=== PATIENT | female | born 1980 | race Caucasian/White ===

== ENCOUNTER 2020-11-14 14:03 | Emergency (ER) | payer BC, SELFPAY ==
[2020-11-14 14:34] VITALS: BP 111/70; PULSE 88; RESP 18; TEMP 36.7; O2SAT 97; BMI 22.3
--- NOTE | 2020-11-14 15:19 | ED_ITS ---
HPI - Dizziness General: Chief Complaint: General Medical Stated Complaint: DIZZY, SWEATING BUT FEELS DEHYDRATED Time Seen by Provider: 11/14/20 15:05 Source: patient Mode of arrival: ambulatory Limitations: no limitations History of Present Illness: HPI Narrative: Patient is a nice 39-year-old female who presents to ED today with what she presumes is heat exhaustion. Patient tells me she is currently in town and working at the [employer]. 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 Patient tells me she began feeling lightheaded and dizzy and tired. She reportedly tries to drink plenty of water. She is urinating normally. She tells me this morning she felt a little better but feels she cannot go to work this evening and work her shift-is requesting a work note. She tells me she has a history of chronic intermittent vertigo. She has not had any syncopal episodes. She denies chest pain or palpitations. She does not feel short of breath. No visual changes. MD elicited complaint: dizziness and lightheadedness Pertinent past history: other (chronic intermittent vertigo) Onset (ago): day(s) (yesterday) Timing: gradual onset Severity: mild Context: exertion and other (heat) History of similar symptoms: Yes Relieving factors: nothing Associated symptoms: Reports no associated symptoms; Denies chest pain, chills, headache(s), malaise, nausea, palpitations, syncope or vomiting Associated neuro symptoms: Reports no associated symptoms; Deny confusion or numbness in extremities Review of Systems Const: Denies: fever(s), chills, body aches, change in appetite, change in weight, fatigue, malaise or night sweats Eyes: Denies: change in vision, blurry vision, photophobia, floaters or seeing flashes Card: Reports: lightheadedness; Denies: chest pain, palpitations, irregular heart rhythm, edema, swelling of feet/ankles, syncope, pre-syncope, dyspnea on exertion, orthopnea, leg pain with exertion or acrocyanosis Resp: Denies: dyspnea, productive cough or pain on inspiration GI: Denies: abdominal pain, nausea, vomiting, heartburn or diarrhea : Denies: flank pain or dysuria Musc: Denies: neck pain, back pain or joint pain Skin/Breast: Denies: rash Neuro: Reports: dizziness and vertigo (chronic); Denies: headache(s), numbness in extremities, weakness in extremities, sensory changes, lack of coordination, difficulty walking, frequent falls, confusion, behavioral changes, Slurred speech present, difficulty communicating thoughts or seizure-like activity Physical Exam Const: COMMON NORMALS: no acute distress, average body habitus, patient oriented x3, no limitations, healthy appearing, alert and well nourished GENERAL APPEARANCE: cooperative ORIENTATION/CONSCIOUSNESS: Yes awake, Yes oriented to person, Yes oriented to place and Yes oriented to time HENMT: COMMON NORMALS: normocephalic, atraumatic, external ears normal, EAC's normal and TM's normal bilaterally HEAD & SCALP: normocephalic and atraumatic FACE & SINUS: normal facial exam and sinuses nontender EXTERNAL EAR: Yes external ears normal EXTERNAL AUDITORY CANAL: EAC's normal TYMPANIC MEMBRANE: TM's normal bilaterally Eye: COMMON NORMALS: Equal, round and reactive pupils present and EOMs intact bilaterally GENERAL EYE: appearance normal, both eyes and all related structures PUPIL: Yes Equal, round and reactive pupils present Neck/C-Spine: COMMON NORMALS: full ROM and no lymphadenopathy GENERAL: Yes normal visual inspection Resp: COMMON NORMALS: normal respiratory effort and clear to auscultation bilaterally AUSCULTATION: clear to auscultation bilaterally Cardio: COMMON NORMALS: regular rate and regular rhythm RATE: regular rate RHYTHM: regular rhythm Extremity: COMMON NORMALS: capillary refill normal, no clubbing, cyanosis or edema, no calf tenderness and no pedal edema Neuro: ÁNGEL COMA SCALE: document GCS findings Ángel coma scale eye opening: Spontaneous Ellabell coma scale verbal response: Orientated [place]ell coma scale motor response: Obey commands Ángel coma scale total score: 15 COMMON NORMALS: patient oriented x3, CN's II-XII intact bilaterally, moves all extremities, no focal motor deficits, no sensory deficits noted and gait normal SENSORIUM/ORIENTATION: Yes alert, Yes oriented to person, Yes oriented to place and Yes oriented to time Skin: COMMON NORMALS: no rashes or lesions noted GENERAL SKIN EXAM: no rashes or lesions noted Course Vital Signs: Vital signs: Vital Signs Temperature 98.1 F 11/14/20 14:34 Pulse Rate 70 11/14/20 17:07 Respiratory Rate 18 11/14/20 14:34 Blood Pressure 115/80 11/14/20 17:07 Pulse Oximetry 100 11/14/20 17:07 MDM - Dizziness MDM Narrative: Medical decision making narrative: Patient tells me she is feeling better with rest and fluids here. Her vital signs are stable. CBC revealing microcytic anemia with hemoglobin of 8.5. I discussed this with patient and she does not seem concerned stating she has had issues with anemia her whole life. She tells me her hemoglobin often runs around 9. She states she has been told to take iron tablets previously but is currently not. She denies any hematemesis, hematochezia, black or tarry stools. CMP is significant for minor elevations to her LFTs. She is not complaining of abdominal pain. She does have a previous history of IV drug use. Discussed with her the need to follow-up with primary care and possibly obtain hepatitis panel. She verbalizes understanding. At this time patient is stable for discharge with return to ED precautions. Work note for this evening provided. Lab Data: Labs: Lab Results 11/14/20 11/14/20 11/14/20 Range/Units 15:38 15:38 15:38 WBC 5.8 (4.0-10.0) 10^3/ uL RBC 4.32 (4.1-5.3) 10^6/u L Hgb 8.5 L (11.5-15.3) g/dL Hct 30.5 L (37.0-47.0) % MCV 70.6 L (81-99) fL MCH 19.7 L (28.0-34.0) pg MCHC 27.9 L (30.0-36.0) g/dL RDW 20.1 H (12.1-15.1) % Plt Count 257 (130-400) 10^3/c mm MPV 9.9 (7.4-10.4) fL Neut % (Auto) 59.6 % Lymph % (Auto) 25.7 % Meriwether % (Auto) 11.3 % Eos % (Auto) 2.7 % Baso % (Auto) 0.5 % Neut # (Auto) 3.47 (1.8-7.7) 10^3/u L Lymph # (Auto) 1.5 (0.8-4.8) 10^3/u L Meriwether # (Auto) 0.7 (0.2-0.9) 10^3/u L Eos # (Auto) 0.2 (0.0-0.8) 10^3/u L Baso # (Auto) 0.0 (0.0-0.1) 10^3/u L Nucleated RBC % (a uto) 0 % Nucleated RBCs # 0.0 /100WBC Sodium 138 (136-145) mmol/L Potassium 3.8 (3.5-5.1) mmol/L Chloride 104 (98-107) mmol/L Carbon Dioxide 26 (22-29) mmol/L Anion Gap 11.8 (5-19) BUN 13 (6-20) mg/dL Creatinine 0.6 (0.5-0.9) mg/dL GFR Calculation 112.5 (90-130) mL/min Glucose 94 (65-115) mg/dL Calculated Osmolal ity 286 (285-295) mOsm/k g Calcium 8.5 (8.5-10.5) mg/dL Total Bilirubin 0.4 (0.15-1.2) mg/dL AST 53 H (0-32) U/L ALT 69 H (0-33) U/L Alkaline Phosphata se 67 (35-105) IU/L Total Protein 6.8 (6.6-8.7) g/dL Albumin 4.1 (3.5-5.2) g/dL Globulin 2.7 (1.3-4.6) g/dL HCG, Qual Negative (Negative) Urine Color (Yellow) Urine Appearance (CLEAR) Urine pH (5-7) Ur Specific Gravit y (1.005-1.030) Urine Protein (Negative) Urine Glucose (UA) (Normal) Urine Ketones (Negative) Urine Blood (Negative) Urine Nitrate (Negative) Urine Bilirubin (Negative) Urine Urobilinogen (Negative) mg/dL Ur Leukocyte Dede ase (Negative) 11/14/20 Range/Units 16:42 WBC (4.0-10.0) 10^3/ uL RBC (4.1-5.3) 10^6/u L Hgb (11.5-15.3) g/dL Hct (37.0-47.0) % MCV (81-99) fL MCH (28.0-34.0) pg MCHC (30.0-36.0) g/dL RDW (12.1-15.1) % Plt Count (130-400) 10^3/c mm MPV (7.4-10.4) fL Neut % (Auto) % Lymph % (Auto) % Meriwether % (Auto) % Eos % (Auto) % Baso % (Auto) % Neut # (Auto) (1.8-7.7) 10^3/u L Lymph # (Auto) (0.8-4.8) 10^3/u L Meriwether # (Auto) (0.2-0.9) 10^3/u L Eos # (Auto) (0.0-0.8) 10^3/u L Baso # (Auto) (0.0-0.1) 10^3/u L Nucleated RBC % (a uto) % Nucleated RBCs # /100WBC Sodium (136-145) mmol/L Potassium (3.5-5.1) mmol/L Chloride (98-107) mmol/L Carbon Dioxide (22-29) mmol/L Anion Gap (5-19) BUN (6-20) mg/dL Creatinine (0.5-0.9) mg/dL GFR Calculation (90-130) mL/min Glucose (65-115) mg/dL Calculated Osmolal ity (285-295) mOsm/k g Calcium (8.5-10.5) mg/dL Total Bilirubin (0.15-1.2) mg/dL AST (0-32) U/L ALT (0-33) U/L Alkaline Phosphata se (35-105) IU/L Total Protein (6.6-8.7) g/dL Albumin (3.5-5.2) g/dL Globulin (1.3-4.6) g/dL HCG, Qual (Negative) Urine Color Colorless (Yellow) Urine Appearance Clear (CLEAR) Urine pH 5 (5-7) Ur Specific Gravit y 1.025 (1.005-1.030) Urine Protein Neg (Negative) Urine Glucose (UA) Norm (Normal) Urine Ketones Negative (Negative) Urine Blood Neg (Negative) Urine Nitrate Negative (Negative) Urine Bilirubin Neg (Negative) Urine Urobilinogen Norm (Negative) mg/dL Ur Leukocyte Dede ase Negative (Negative) Discharge Plan Discharge Patient Disposition: Home Clinical Impression: Elevated LFTs Heat exhaustion Qualifiers: Encounter type: initial encounter Qualified Code(s): T67.5XXA - Heat exhaustion, unspecified, initial encounter Condition: Stable Prescriptions: No Action No Known Home Medications RF: 0 Discharge Orders: Discharge ED (Routine); Ordered 11/14/20 Ordered By: Lindsey Paniagua Patient Instructions: Heat Exhaustion - Adult, Fatigue (ED) Activity Restrictions/Additional Instructions: As we discussed please go home and continue to rest and drink plenty of fluids this evening. You may follow-up with your primary care provider in regards to your mild elevations of your liver enzymes. You may return to the emergency department at anytime for severe dizziness/lightheadedness, passing out episodes, severe abdominal pain, yellowing of the skin or eyes, or any other concerns you may have. Stand Alone Forms: Work/School Release Coding Level of Care Code ED [employer] for Norberto [employer]a
[2020-11-14 15:40] VITALS: BP 110/62; PULSE 77; O2SAT 99
[2020-11-14] MEDS: sodium chloride 0.9% 1,000 ML 999 ML IV (15:40)
[2020-11-14 15:44] LABS: Basophils % 0.5 %; Eosinophils # 0.2 10^3/uL (0.0-0.8); Eosinophils % 2.7 %; Hematocrit 30.5 % (37.0-47.0); Hemoglobin 8.5 g/dL (11.5-15.3); Lymphocytes # 1.5 10^3/uL (0.8-4.8); Lymphocytes % 25.7 %; Mean Corpuscular HGB Conc 27.9 g/dL (30.0-36.0); Mean Corpuscular Hemoglobin 19.7 pg (28.0-34.0); Mean Corpuscular Volume 70.6 fL (81-99); Mean Platelet Volume 9.9 fL (7.4-10.4); Monocytes # 0.7 10^3/uL (0.2-0.9); Monocytes % 11.3 %; Neutrophils # 3.47 10^3/uL (1.8-7.7); Neutrophils % 59.6 %; Nucleated Red Blood Cells % 0 %; Platelet Count 257 10^3/cmm (130-400); Red Blood Count 4.32 10^6/uL (4.1-5.3); Red Cell Distribution Width 20.1 % (12.1-15.1); White Blood Count 5.8 10^3/uL (4.0-10.0)
[2020-11-14 15:55] LABS: HCG, Serum Qual Negative (Negative)
[2020-11-14 16:10] LABS: Alanine Aminotransferase 69 U/L (0-33); Albumin Level 4.1 g/dL (3.5-5.2); Alkaline Phosphatase 67 IU/L (35-105); Aspartate Amino Transferase 53 U/L (0-32); Blood Urea Nitrogen 13 mg/dL (6-20); Calcium 8.5 mg/dL (8.5-10.5); Carbon Dioxide 26 mmol/L (22-29); Chloride 104 mmol/L (98-107); Globulin 2.7 g/dL (1.3-4.6); Glomerular Filtration Rate 112.5 mL/min (90-130); Glucose 94 mg/dL (65-115); Osmolality Calculated 286 mOsm/kg (285-295); Sodium 138 mmol/L (136-145); Total Bilirubin 0.4 mg/dL (0.15-1.2); Total Protein 6.8 g/dL (6.6-8.7)
[2020-11-14 16:22] LABS: Anion Gap 11.8 (5-19); Potassium 3.8 mmol/L (3.5-5.1)
[2020-11-14 16:47] LABS: Add Urine Microscopic? NO; Charge for UA Resulting for Rev
[2020-11-14 16:51] LABS: Blood Urine Neg (Negative); Glucose Urine UA Norm (Normal); Ketones Urine Negative (Negative); Protein Urine Neg (Negative); Specific Gravity, Urine 1.025 (1.005-1.030); Urine Appearance Clear (CLEAR); Urine Color Colorless (Yellow); pH Urine 5 (5-7)
[2020-11-14 16:52] LABS: Bilirubin Urine Neg (Negative); Leukocyte Esterase Urine Negative (Negative); Nitrate Urine Negative (Negative); Urobilinogen Urine Norm (Negative)
[2020-11-14 17:07] VITALS: BP 115/80; PULSE 70; O2SAT 100
== END 2020-11-14 17:23 | disposition home or self-care (01) ==
PROVIDERS: Emergency Provider Physician Assistant
DX: T67.5XXA Heat exhaustion, unspecified, initial encounter (principal); R79.89 Other specified abnormal findings of blood chemistry
CPT/HCPCS: 80053; 81003; 84703; 85025; 96360; 99283; J7030